=== PATIENT | male | born 1945 | race African-American/Black ===

== ENCOUNTER 2016-07-17 00:54 | Inpatient (IN) | payer OTHER ==
[2016-07-17] VITALS (15 sets, daily range): BP systolic 74–198; BP diastolic 48–94
[~2016-07-17] VITALS: Ht 177.8 cm; Wt 79.0 kg
[~2016-07-17 00:54] MED LIST: ATA25 PO; AUG500 PO; BENLYSTA PO; DIETARY SUPPLEMENT PO; FERROUS SULFAT325 M2 PO; FOCUS FACTOR PO; GLUCOSAMINE CHO1 TAB PO; HYDROCODONE/ACE1 TA2 PO; HYDROXYZINE50 M1 PO; LAC PO; METOPROLOL SUC100 M2 PO; MINOXIDIL2.5 MG PO; NOR10 PO; PHOSLO667 MG PO; RENAL CAPS1 SGL PO; RENVELA800 M1 PO; SENSIPAR30 M1 PO
[2016-07-17 02:04] LABS: BASOPHIL % 0.4 % (0-2); PLATELET COUNT 329 x10^3mcL (130-400)
[2016-07-17 02:05] LABS: RED CELL DISTRIBUTION WIDTH 18.3 % (11.5-14.5)
[2016-07-17 02:17] LABS: ALBUMIN 3.5 g/dL (3.4-5.0); ALKALINE PHOSPHATASE 145 U/L (46-116); ALT/SGPT 76 U/L (16-63); AST/SGOT 86 U/L (15-37); BILIRUBIN TOTAL 0.56 mg/dL (0.20-1.00); CARBON DIOXIDE 26.3 mmol/L (21-32); CHLORIDE SERUM 97 mmol/L (98-107); GLUCOSE SERUM 275 mg/dL (74-106); SODIUM SERUM 137 mmol/L (136-145); TOTAL PROTEIN, SERUM 8.1 g/dL (6.4-8.2)
[2016-07-17 03:03] LABS: CK-MB 3.1 ng/mL (0-3.6)
[2016-07-17 03:22] LABS: UA SPECIFIC GRAVITY 1.015 (1.005-1.035); microscopic required? YES; urine erythrocyte 3+ (NEGATIVE)
[2016-07-17 04:43] LABS: CHOLESTEROL/HDL RATIO 2.9
[2016-07-17 04:51] LABS: T3 TOTAL 0.84 ng/mL
[2016-07-17 04:54] LABS: FREE T4 0.83 ng/dL (0.76-1.46); FREE THYROXINE INDEX 2.4 ug/dL (1.4-4.5); T4(THYROXINE) 7.5 ug/dL (4.7-13.3)
[2016-07-18] VITALS (18 sets, daily range): BP systolic 83–160; BP diastolic 42–77
[2016-07-18 05:44] LABS: BASOPHIL % 0.1 % (0-2); PLATELET COUNT 168 x10^3mcL (130-400)
[2016-07-18 05:50] LABS: RED CELL DISTRIBUTION WIDTH 18.1 % (11.5-14.5)
[2016-07-18 05:55] LABS: CALCIUM 8.6 mg/dL (8.5-10.1); CARBON DIOXIDE 29.1 mmol/L (21-32); CHLORIDE SERUM 96 mmol/L (98-107); GLUCOSE SERUM 107 mg/dL (74-106); MAGNESIUM 1.8 mg/dL (1.8-2.4); PHOSPHOROUS 5.5 mg/dL (2.5-4.9); POTASSIUM SERUM 4.3 mmol/L (3.5-5.1); SODIUM SERUM 136 mmol/L (136-145)
[2016-07-18 06:03] LABS: ALBUMIN 2.7 g/dL (3.4-5.0); CREATININE SERUM 7.2 mg/dL (0.7-1.3)
[2016-07-19] VITALS (16 sets, daily range): BP systolic 108–186; BP diastolic 49–75; Ht 177.8 cm; Wt 79.0 kg
[2016-07-19 05:38] LABS: BASOPHIL % 0.1 % (0-2); PLATELET COUNT 141 x10^3mcL (130-400)
[2016-07-19 05:58] LABS: CALCIUM 8.9 mg/dL (8.5-10.1); CARBON DIOXIDE 30.3 mmol/L (21-32); CHLORIDE SERUM 96 mmol/L (98-107); GLUCOSE SERUM 94 mg/dL (74-106); PHOSPHOROUS 6.2 mg/dL (2.5-4.9); POTASSIUM SERUM 4.2 mmol/L (3.5-5.1); SODIUM SERUM 137 mmol/L (136-145)
[2016-07-19 06:05] LABS: CREATININE SERUM 8.2 mg/dL (0.7-1.3)
[2016-07-19 09:38] LABS: IRON 15 ug/dL (65-170); TOTAL IRON BINDING CAPACITY 151 ug/dL (250-450)
[2016-07-19 09:44] LABS: RED BLOOD CELLS 2.55 M/mm3 (4.52-5.90)
[2016-07-19 22:03] LABS: PLATELET COUNT 154 x10^3mcL (130-400)
[2016-07-19 22:11] LABS: BASOPHIL % 0 % (0-2); RED CELL DISTRIBUTION WIDTH 17.7 % (11.5-14.5)
[2016-07-20 03:02] VITALS: BP 151/68
[2016-07-20 05:42] LABS: BASOPHIL % 0.1 % (0-2); PLATELET COUNT 163 x10^3mcL (130-400)
[2016-07-20 05:47] LABS: CALCIUM 10.1 mg/dL (8.5-10.1); CARBON DIOXIDE 28.3 mmol/L (21-32); CHLORIDE SERUM 98 mmol/L (98-107); GLUCOSE SERUM 95 mg/dL (74-106); PHOSPHOROUS 5.5 mg/dL (2.5-4.9); POTASSIUM SERUM 4.2 mmol/L (3.5-5.1); SODIUM SERUM 137 mmol/L (136-145)
[2016-07-20 05:50] LABS: RED CELL DISTRIBUTION WIDTH 17.3 % (11.5-14.5)
[2016-07-20 05:52] LABS: CREATININE SERUM 6.3 mg/dL (0.7-1.3)
[2016-07-20 06:13] VITALS: BP 151/68
[2016-07-20 07:30] VITALS: BP 146/63
[2016-07-20 12:20] VITALS: BP 143/77
[2016-07-20 17:50] VITALS: BP 156/74
[2016-07-20 21:49] VITALS: BP 150/74
[2016-07-21 06:16] VITALS: BP 144/82
[2016-07-21 07:40] LABS: CALCIUM 10.7 mg/dL (8.5-10.1); CHLORIDE SERUM 97 mmol/L (98-107); GLUCOSE SERUM 87 mg/dL (74-106); PHOSPHOROUS 5.2 mg/dL (2.5-4.9); POTASSIUM SERUM 4.6 mmol/L (3.5-5.1); SODIUM SERUM 136 mmol/L (136-145)
[2016-07-21 07:41] LABS: BASOPHIL % 0.4 % (0-2); PLATELET COUNT 166 x10^3mcL (130-400)
[2016-07-21 07:44] LABS: RED CELL DISTRIBUTION WIDTH 18.1 % (11.5-14.5)
[2016-07-21 07:53] LABS: CREATININE SERUM 8.1 mg/dL (0.7-1.3)
[2016-07-21 09:00] VITALS: BP 144/66
[2016-07-21 09:30] VITALS: BP 126/60
[2016-07-21 10:30] VITALS: BP 120/62
[2016-07-21 11:45] VITALS: BP 135/66
[2016-07-21 14:45] VITALS: BP 135/66
[2016-07-21] MEDS ORDERED: ASPIR 8181 MG PO (15:07)
== END 2016-07-21 16:05 | disposition home or self-care (01) | DRG 208 ==
LOC: ED 00:54 → IC 03:07 → DU 07-20 17:39
PROVIDERS: Emergency Medicine; ADMIT Family Medicine
PROC: 0BH17EZ Insertion of Endotracheal Airway into Trachea, Via Natural or Artificial Opening (ICD-10-PCS; principal; 2016-07-17)
PROC: 5A1945Z Respiratory Ventilation, 24-96 Consecutive Hours (ICD-10-PCS; 2016-07-17)
PROC: 05HM33Z Insertion of Infusion Device into Right Internal Jugular Vein, Percutaneous Approach (ICD-10-PCS; 2016-07-17)
PROC: B543ZZA Ultrasonography of Right Jugular Veins, Guidance (ICD-10-PCS; 2016-07-17)
DX: J96.01 Acute respiratory failure with hypoxia (principal); I50.43 Acute on chronic combined systolic (congestive) and diastolic (congestive) heart failure; N18.6 End stage renal disease; N17.0 Acute kidney failure with tubular necrosis; K72.01 Acute and subacute hepatic failure with coma; E43 Unspecified severe protein-calorie malnutrition; I13.2 Hypertensive heart and chronic kidney disease with heart failure and with stage 5 chronic kidney disease, or end stage renal disease; E87.4 Mixed disorder of acid-base balance; I16.1 Hypertensive emergency; D68.69 Other thrombophilia; R31.9 Hematuria, unspecified; D63.8 Anemia in other chronic diseases classified elsewhere; E11.59 Type 2 diabetes mellitus with other circulatory complications; I44.0 Atrioventricular block, first degree; I25.2 Old myocardial infarction; Z99.2 Dependence on renal dialysis; Z87.891 Personal history of nicotine dependence; Z85.520 Personal history of malignant carcinoid tumor of kidney; Z68.27 Body mass index [BMI] 27.0-27.9, adult
CPT/HCPCS: 36556; 36600; 82962; 83880; 84439; 94150; 97116-GP; 97530-GP; A4628; A4719; J0330; J1170; J1200; J1642; J1644; J1940; J1956; J2060; J2270; J2543; J2704; J3490; J7030; J7040; J7042; J7050; J7620; P9016; Q0092

== ENCOUNTER 2019-01-06 09:22 | Inpatient (IN) | payer OTHER ==
[~2019-01-06] VITALS: Ht 176.5 cm; Wt 82.8 kg
[~2019-01-06 09:22] MED LIST changes: +ASPIR 8181 MG PO
--- NOTE | 2019-01-06 09:23 | NUR ---
PT BIBA DUE PT PT WALKING IN RESIDENT HOME BECOMING SOB. PER MEDIC UPON ARRIVAL PT WAS PALE, COOL AND DIAPHORETIC. PER MEDIC PT WAS AAOX4, BG 115. PT ARRIVED ON CPAP, PT ALERT AND ORIENTED, SPEAKING IN FULL SENTENCES. NOTED NEW SHUNT PLACEMENT WITH SUTURES TO LEFT UPPER ARM. PT STS HE GOES TO DIALYSIS (SATURDAY/SATURDAY). PER PT STS THAT HE DID NOT GO TO DIALYSIS TODAY BECAUASE HE BECAME SOB. PT STS " I NEED TO GO TO DIALYSIS". DR. MAXWELL AT BEDSIDE. SPO2 93%, PT PLACED ON FULL CM. VSS. WILL CONTINUE TO MONITOR. PT HAD DISTENDED ABDOMEN.
--- NOTE | 2019-01-06 09:30 | NUR ---
LAB ATTMEPTING TO DRAW BLOOD UNCSUCCESSFUL. DR. MAXWELL MADE AWARE.
--- NOTE | 2019-01-06 09:42 | NUR ---
EKG IN PROGRESS. LAB AT BEDSIDE.
[2019-01-06 10:08] LABS: BASOPHIL % 0.5 % (0-2); PLATELET COUNT 240 x10^3mcL (130-400)
--- NOTE | 2019-01-06 10:19 | NUR ---
US AT BEDSIDE FOR IV ACCESS WITH DR. GRAY.
[2019-01-06 10:34] LABS: T3 TOTAL 0.88 ng/mL
--- NOTE | 2019-01-06 10:35 | NUR ---
AT BEDSIDE FOR US GUIDED IV.
[2019-01-06 10:39] LABS: RED CELL DISTRIBUTION WIDTH 21.1 % (11.5-14.5)
[2019-01-06 10:40] LABS: FREE T4 0.81 ng/dL (0.76-1.46); FREE THYROXINE INDEX 2.2 ug/dL (1.4-4.5); T4(THYROXINE) 6.5 ug/dL (4.7-13.3)
[2019-01-06 10:49] LABS: ALKALINE PHOSPHATASE 127 U/L (46-116); ALT/SGPT 13 U/L (16-63); AST/SGOT 14 U/L (15-37); BILIRUBIN TOTAL 0.4 mg/dL (0.20-1.00); C REACTIVE PROTEIN 2.5 mg/dL (<=0.9); CALCIUM 8.3 mg/dL (8.5-10.1); CHLORIDE SERUM 97 mmol/L (98-107); GLUCOSE SERUM 122 mg/dL (74-106); POTASSIUM SERUM 4.7 mmol/L (3.5-5.1); SODIUM SERUM 136 mmol/L (136-145)
[2019-01-06 10:58] LABS: ALBUMIN 3.3 g/dL (3.4-5.0); CREATININE SERUM 11.9 mg/dL (0.7-1.3); TOTAL PROTEIN, SERUM 8.4 g/dL (6.4-8.2)
[2019-01-06 11:00] LABS: ERYTHROCYTE SED RATE 60 mm/hr (0-20)
--- NOTE | 2019-01-06 11:05 | NUR ---
PT SIGNING CONSENT FOR CENTRAL LINE.
--- NOTE | 2019-01-06 11:30 | NUR ---
PT NOW REFUSED CENTRAL LINE. DR. MAXWELL AT BEDSIDE AND PLACING RT SIDE EJ.
[2019-01-06 11:49] LABS: rbc morphology (normal/abnorm) ABNORMAL (NORMAL)
[2019-01-06 11:50] LABS: ovalocyte/elliptocyte 1+
[2019-01-06] MEDS ORDERED: BACLOFEN10 MG PO (12:12)
[2019-01-06] MEDS ORDERED: NEU300 PO (12:12)
--- NOTE | 2019-01-06 12:13 | NUR ---
PT PLACED BACK ON BIPAP DUE TO PT SPO2 88%. PT NOW SPO2 95%. VSS. RESP E/U WILL CONTINUE TO MONITOR.
--- NOTE | 2019-01-06 12:25 | NUR ---
ATTEMPTED TO CALL [facility] AND NURSE DASIA REFUSING TO TAKE REPORT FOR PT DUE TO HERE "NOT RECEIVING PAPERWORK". DR. HOPE MADE AWARE. CONTACTED [facility] AND [facility] THAT [facility] THEY FAXED PAPERWORK. DASIA NURSE STS SHE HAS NOT RECEIVED. WILL ATTEMPT TO RECONTACT FACILITY.
--- NOTE | 2019-01-06 12:38 | NUR ---
REPORT GIVEN TO ZENON CROWLEY TO ASSUME CARE OF PT.
--- NOTE | 2019-01-06 13:30 | NUR ---
PT SEEN LYING IN BED, AAOX4. DENIES HEADACHE/DIZZINESS. ABLE TO FOLLOW COMMANDS. NO SOB NOTED, W/ NON-PRODUCTIVE COUGH, O2 WJN=718% ON NRB. LUNG SOUNDS CLEAR ON THE UPPER LOBES AND DIMINISHED ON THE BASES. DENIES CHEST PAIN/PRESSURE. C/O CONSTIPATION, LAST BM-TODAY. ABDOMEN IS SOFT AND ROUND. OLIGURIC. W/ LUE DIALYSIS ACCESS, BRUIT AND THRILL PRESENT. W/ +2 EDEMA ON BLE, WEAK PEDAL PULSES. SIDE RAILS UPX2. CALL LIGHT ON REACH. HOB ELEVATED AT 45 DEG. PRIMARY NURSE JENN AT BEDSIDE FOR CONTINUITY OF CARE
[2019-01-06 13:32] VITALS: BP 162/73
--- NOTE | 2019-01-06 13:54 | NUR ---
PATIENT ARRIVED TO FLOOR VIA [facility]. PATIENT A/OX4, AMBULATORY W ASSIST. CURRENTLY ON O2 MASK W NRB. NO COMPLAINTS AT THIS TIME. SHIP PROPELLER FINISHER JEANINE IN TO SPEAK WITH PATIENT, STATES PATIENT HAS FLUID OVERLOAD W CXR IN ED. DR APONTE CONSULTED, PATIENT VERBALIZES UNDERSTANDING. HD TREATMENT ORDERED TODAY BY DR SANTIAGO, HD NURSE ARACELI INFORMED. PATIENT ALSO AWARE FOR HD TREATMENT TODAY. INSTRUCTED PATIENT ON USE OF BED CONTROLS AND CALL LIGHT CONTROLS.
[2019-01-06 14:02] VITALS: BP 173/62
[2019-01-06 14:05] VITALS: Ht 176.5 cm; Wt 82.8 kg
[2019-01-06 15:08] VITALS: BP 173/62
[2019-01-06 17:25] VITALS: BP 169/73
--- NOTE | 2019-01-06 18:36 | NUR ---
PATIENT IN CHAIR AT THIS TIME. NO COMPLAINTS OF SOB OR CHEST PRESSURE. CONTINUES TO BE 7 LPM OXYMIZER. HD NURSE GREG IN ROOM, HD TREATMENT IN PROGRESS, CONSENT SIGNED. WILL ENDORSE TO ONCOMING NURSE. CALL LIGHT IN REACH, FAMILY AT BEDSIDE.
--- NOTE | 2019-01-06 19:58 | NUR ---
RECEIVED PT , SITTING UP IN CHAIR AT THE BEDSIDE, WITH HEMODIALYSIS IN PROGRESS. DIALYSIS NURSE AT THE BEDSIDE. ALERT AND ORIENTED. DENIES HEADACHE/DIZZINESS. RESP. EVEN AND UNLABORED. [address] VIA OXYMIZER, MAKAYLA. WELL. NO ACUTE DISTRESS NOTED. AFEBRILE AND VITAL SIGNS STABLE. AV SHUNT TO LUE WITH GOOD BRUIT/THRILL. NO COMPLAINTS NOTED AT THIS TIME. SR ON THE MONITOR, DENIES CHEST PAIN OR ANY DISCOMFORT AT THIS TIME. CALL LIGHT WITHIN REACH. WILL CONTINUE TO MONITOR.
[2019-01-06 20:26] VITALS: BP 146/56
--- NOTE | 2019-01-06 21:10 | NUR ---
HEMODIALYSIS DONE BY THE DIALYSIS NURSE. 3.5L TAKEN OUT PER DIALYSIS NURSE.NO COMPLAINTS NOTED AT THIS TIME. ASSISTED WITH HS CARE. CALL LIGHT WITHIN REACH. WILL CONTINUE TO MONITOR.
--- NOTE | 2019-01-07 00:57 | NUR ---
EYES CLOSED, APPEARS ASLEEP, EASILY AROUSABLE. RESP. EVEN AND UNLABORED, [address] VIA OXYMIZER , MAKAYLA. WELL. NO ACUTE DISTRESS NOTED. CALL LIGHT WITHIN REACH. WILL CONTINUE TO MONITOR.
--- NOTE | 2019-01-07 05:46 | NUR ---
COMPLAINED OF HEADACHE,4/10, REQUESTING TYLENOL , MEDICATED ORDERED. WILL CONTINUE TO MONITOR.
--- NOTE | 2019-01-07 05:53 | NUR ---
AFEBRILE AND VITAL SIGNS STABLE. RESP. EVEN AND UNLABORED.[address] VIA OXYMIZER, MAKAYLA.AND SAT. WELL. DENIES SOB OR ANY DISTRESS . KEPT COMFORTABLE. SR ON THE MONITOR,DENIES CHEST PAIN OR PRESSURE. CALL LIGHT WITHIN REACH. WILL CONTINUE TO MONITOR.
[2019-01-07 06:14] VITALS: BP 127/70
[2019-01-07 06:22] LABS: BASOPHIL % 0.5 % (0-2); PLATELET COUNT 185 x10^3mcL (130-400)
[2019-01-07 06:31] LABS: CALCIUM 8.8 mg/dL (8.5-10.1); CARBON DIOXIDE 24.3 mmol/L (21-32); CHLORIDE SERUM 103 mmol/L (98-107); GLUCOSE SERUM 81 mg/dL (74-106); SODIUM SERUM 138 mmol/L (136-145)
[2019-01-07 06:46] LABS: CREATININE SERUM 8.8 mg/dL (0.7-1.3)
[2019-01-07 06:57] LABS: RED CELL DISTRIBUTION WIDTH 20.1 % (11.5-14.5)
--- NOTE | 2019-01-07 08:00 | NUR ---
PATIENT RECEIVED ALERT AND SITTING UP IN CHAIR. PATIENT HAS CLEAR BREATH SOUNDS AND BOWEL SOUNDS ACTIVE. PATIENT HAS REQUESTED MORE FOOD AND HAS BEEN NOTED TO HAVE BEEN WITH DIABETES WELL RENAL AND IS ASKING FOR FOOD INAPPROPIRATE DIET WITH REQUESTED MOSTLY CARBOHYDRATES. PATIENT HAS CLEAR BUT DIMINISHED BREATH SOUNDS AND NO EDEMA NOTED TO THE LOWER EXTREMITSE. APTIEHNT AHS A AV SHUNT TO THE LEFT ARM AND CAN FEEL THE BRUIT AND HE HAD DIALYSIS YESTERDAY AND DOES DIALYSIS ON MWF BUT HAD MISSED HIS DIALYSIS PRIOR TO ADMIT. HE HAS 3.5 LITESR REMOVED AND DENIES URINATION BUT OCCASIONALLY DOES URINATE. PATIENT HAS BEEN WITH RIGHT NECK IV PLACEMENT AND HAS BEEN HEPLOCKEDA S INDICATED. NILD GENERAL WEAKNESS NOTED AN HAS NOTED PATCHY OPICITY TO THE MID AND LOWER LUNGS AND A NON PRODUCTIVE COUGH. PO2 AT 45.1 ABG. RECIEVED TYLENOL AT 514 FOR HEADACHE AND EFFECTIVE AT THIS TIME. HX OF HERNIA, ESRD, HTN, RENAL CANCER AND DIVERTICULITIS AND DIABETES. PATIENT INDICATED HE IS ANXIOUS TO GO HOME. NO ORDERS FOR DISCHARGE AT THIS TIME.
[2019-01-07 08:41] VITALS: BP 148/63
--- NOTE | 2019-01-07 11:41 | NUR ---
CONTINUED SITTING UP AT BEDSIDE. PATIENT BLOOD SUGAR TAKEN AND AT THIS TME AT 62. AMORN IS ASYMPTOMATC AND OFFERED JUICE AND CRACKER. HE DENIES ANY DIABETIC HISTORY.
[2019-01-07 13:24] VITALS: BP 145/48
--- NOTE | 2019-01-07 16:00 | NUR ---
PATIENT COMPLETEDE DIALYSIS AND OUTPUT IS AT 1.4LITERS. PATIENT TOLRATED WELL. THE WILL BE PICKING UP AFER DINNER. PATIENT IS HUNGRY NOW.
--- NOTE | 2019-01-07 17:18 | NUR ---
PATIENT IS DRESSED AND READY FOR JTAC BY THE . HE HAS BEEN TOLERATING THE DIET AND FLUIDS WELL. HE VENCES BEEN COOPEATIVE AND PLEASANT WITH CARE.
--- NOTE | 2019-01-07 19:05 | NUR ---
RECEIVED PATIENT FROM DAY SHIFT RN. PATIENT WAS SEEN SITTING ON BEDSIDE CHAIR. NO DISTRESS NOTED. BREATHING EVEN AND UNLABORED ON ROOM AIR. NO SOB OR RESP DISTRESS NOTED. DENIES CHEST PAIN/PRESSURE. NO IV. REMOVED BY DAY SHIFT RN. LUE AV SHUNT NOTED. INTACT. NO BLEEDING NOTED. COMFORT AND SAFETY MEASURES IN PLACE. BED IS LOCKED AND IN THE LOWEST POSITION. SIDE RAILS UP X2. CALL LIGHT IS WITHIN REACH. WILL CONTINUE TO MONITOR.
--- NOTE | 2019-01-07 20:02 | NUR ---
PATIENT'S IS HERE. IN REGULAR CLOTHES. DISCHARGE PAPERWORK AND EDUCATION WITH PATIENT. PATIENT LEFT VIA WHEELCHAIR ACCOMPANIED BY RAE HERNANDEZ. LEFT WITH BELONGINGS. NO SOB NOTED. BREATHING EVEN AND UNLABORED. NO DISTRESS NOTED. DENIES PAIN.
== END 2019-01-07 20:40 | disposition home or self-care (01) | DRG 291 ==
LOC: ED 09:22 → DU 11:57
PROVIDERS: Specialist; ADMIT Internal Medicine
PROC: 05HP33Z Insertion of Infusion Device into Right External Jugular Vein, Percutaneous Approach (ICD-10-PCS; principal; 2019-01-06)
DX: I13.2 Hypertensive heart and chronic kidney disease with heart failure and with stage 5 chronic kidney disease, or end stage renal disease (principal); J96.01 Acute respiratory failure with hypoxia; N18.6 End stage renal disease; I50.41 Acute combined systolic (congestive) and diastolic (congestive) heart failure; E87.2 Acidosis; E11.22 Type 2 diabetes mellitus with diabetic chronic kidney disease; E11.65 Type 2 diabetes mellitus with hyperglycemia; Z90.5 Acquired absence of kidney; Z99.2 Dependence on renal dialysis; Z79.4 Long term (current) use of insulin; Z68.26 Body mass index [BMI] 26.0-26.9, adult; Z87.891 Personal history of nicotine dependence; Z85.528 Personal history of other malignant neoplasm of kidney
CPT/HCPCS: 36569; 36600; 82962; 83880; 84439; G0378; J7030; J7613; J7620; J7644

== ENCOUNTER 2019-04-28 07:13 | Inpatient (IN) | payer OTHER ==
[~2019-04-28] VITALS: Ht 175.3 cm; Wt 77.1 kg
[~2019-04-28 07:13] MED LIST changes: +BACLOFEN10 MG PO; +NEU300 PO
[2019-04-28 07:16] VITALS: Ht 175.3 cm; Wt 77.1 kg
[2019-04-28] MEDS ORDERED: PLAQUENIL200 MG (07:35)
[2019-04-28] MEDS ORDERED: RENVELA800 M1 (07:38)
[2019-04-28 08:04] LABS: BASOPHIL % 0.6 % (0-2); PLATELET COUNT 261 x10^3mcL (130-400)
[2019-04-28 08:21] LABS: ALBUMIN 3.5 g/dL (3.4-5.0); ALKALINE PHOSPHATASE 121 U/L (46-116); ALT/SGPT 17 U/L (16-63); AST/SGOT 12 U/L (15-37); BILIRUBIN TOTAL 0.5 mg/dL (0.20-1.00); CALCIUM 9.2 mg/dL (8.5-10.1); CARBON DIOXIDE 25.2 mmol/L (21-32); CHLORIDE SERUM 93 mmol/L (98-107); GLUCOSE SERUM 206 mg/dL (74-106); POTASSIUM SERUM 4.9 mmol/L (3.5-5.1); SODIUM SERUM 137 mmol/L (136-145)
[2019-04-28] MEDS ORDERED: MICARDIS (08:58)
[2019-04-28] MEDS ORDERED: HYZAAR1 TA2 (08:58)
[2019-04-28 09:48] VITALS: BP 137/57
[2019-04-28 11:38] VITALS: BP 142/61
[2019-04-28 11:54] VITALS: BP 142/61
[2019-04-28 12:44] LABS: MAGNESIUM 2.6 mg/dL (1.8-2.4); PHOSPHOROUS 7.1 mg/dL (2.5-4.9)
[2019-04-28 12:45] LABS: T3 TOTAL 0.7 ng/mL
[2019-04-28 12:51] LABS: FREE T4 0.83 ng/dL (0.76-1.46); FREE THYROXINE INDEX 1.9 ug/dL (1.4-4.5); T4(THYROXINE) 6.1 ug/dL (4.7-13.3)
[2019-04-28 16:09] VITALS: BP 138/62
[2019-04-28 21:00] VITALS: BP 143/48
[2019-04-29 05:35] VITALS: BP 156/66
[2019-04-29 06:41] LABS: BASOPHIL % 0.7 % (0-2); PLATELET COUNT 218 x10^3mcL (130-400)
[2019-04-29 07:04] LABS: CALCIUM 9.5 mg/dL (8.5-10.1); CARBON DIOXIDE 27.6 mmol/L (21-32); CHLORIDE SERUM 100 mmol/L (98-107); GLUCOSE SERUM 86 mg/dL (74-106); SODIUM SERUM 140 mmol/L (136-145)
[2019-04-29 07:25] LABS: RED CELL DISTRIBUTION WIDTH 20.1 % (11.5-14.5)
[2019-04-29 07:28] LABS: POTASSIUM SERUM 5.7 mmol/L (3.5-5.1)
[2019-04-29 09:58] VITALS: BP 135/60
[2019-04-29 12:46] LABS: CALCIUM 9.5 mg/dL (8.5-10.1); CHLORIDE SERUM 98 mmol/L (98-107); GLUCOSE SERUM 83 mg/dL (74-106); POTASSIUM SERUM 5.4 mmol/L (3.5-5.1); SODIUM SERUM 137 mmol/L (136-145)
[2019-04-29 12:48] LABS: CREATININE SERUM 7.4 mg/dL (0.7-1.3)
[2019-04-29 13:59] VITALS: BP 132/57
[2019-04-29 18:09] VITALS: BP 122/61
[2019-04-29 19:54] VITALS: BP 122/61
== END 2019-04-29 20:14 | disposition home or self-care (01) | DRG 280 ==
LOC: ED 07:13 → DU 08:38
PROVIDERS: Internal Medicine; ADMIT Internal Medicine
PROC: 5A1D70Z Performance of Urinary Filtration, Intermittent, Less than 6 Hours Per Day (ICD-10-PCS; principal; 2019-04-28)
DX: I13.2 Hypertensive heart and chronic kidney disease with heart failure and with stage 5 chronic kidney disease, or end stage renal disease (principal); N18.6 End stage renal disease; J96.01 Acute respiratory failure with hypoxia; I21.A1 Myocardial infarction type 2; I50.33 Acute on chronic diastolic (congestive) heart failure; E11.22 Type 2 diabetes mellitus with diabetic chronic kidney disease; E87.79 Other fluid overload; K43.9 Ventral hernia without obstruction or gangrene; Z79.84 Long term (current) use of oral hypoglycemic drugs; Z99.2 Dependence on renal dialysis; Z90.5 Acquired absence of kidney; Z85.528 Personal history of other malignant neoplasm of kidney; Z91.15 Patient's noncompliance with renal dialysis
CPT/HCPCS: 36600; 82962; 83880; 84439; 90732; 94150; G0378; J1956; J7030; J7613; J7620; J7644; Q0092; Q0177